=== PATIENT | male | born 1975 | race Caucasian/White ===

== ENCOUNTER 2019-06-28 19:32 | Emergency (ER) | payer SELFPAY ==
[2019-06-28 19:59] VITALS: BP 142/91
[2019-06-28] MEDS ORDERED: DIPHENHYDRAMINE HCL 25 MG CAPSULE PO ONE (20:01)
--- NOTE | 2019-06-28 20:02 | ER Document Report ---
ED Medical Screen (RME) - General Chief Complaint: Insect Bite Stated Complaint: POSSIBLE BUG BITE Time Seen by Provider: 06/28/19 19:59 Primary Care Provider: PIEDAD ROWE [Primary Care Provider] - Follow up as needed Mode of Arrival: Ambulatory Information source: Patient Notes: 44-year-old male presents to the emergency department with insect bite to his stomach. Reports it happened Tuesday night. Reports swelling but it does not hurt. No induration no pustule noted. Patient denies history of diabetes. Patient reports he wrote some cortisone lotion on it. Reports it is itchy. I have greeted and performed a rapid initial assessment of this patient. A comprehensive ED assessment and evaluation of the patient, analysis of test results and completion of the medical decision making process will be conducted by additional ED providers. Dictation of this chart was performed using voice recognition software; therefore, there may be some unintended grammatical errors. - Related Data Allergies/Adverse Reactions: No Known Allergies Allergy (Unverified 06/28/19 19:59) Past Medical History Past Surgical History: Reports: Hx Testicular Surgery - Floating Testicle - Immunizations Hx Diphtheria, Pertussis, Tetanus Vaccination: No Physical Exam - Vital signs Vitals: Temp Pulse Resp BP Pulse Ox 98.2 F 87 18 142/91 H 98 06/28/19 19:58 06/28/19 19:58 06/28/19 19:58 06/28/19 19:58 06/28/19 19:58 Course - Vital Signs Vital signs: Temp Pulse Resp BP Pulse Ox 98.2 F 87 18 142/91 H 98 06/28/19 19:58 06/28/19 19:58 06/28/19 19:58 06/28/19 19:58 06/28/19 19:58 Doctor's Discharge - Discharge Referrals: PIEDAD ROWE [Primary Care Provider] - Follow up as needed
== END 2019-06-28 22:48 | disposition left against medical advice (07) ==
LOC: ER 19:32
DX: S30.861A Insect bite (nonvenomous) of abdominal wall, initial encounter (principal); W57.XXXA Bitten or stung by nonvenomous insect and other nonvenomous arthropods, initial encounter; Z53.20 Procedure and treatment not carried out because of patient's decision for unspecified reasons